=== PATIENT | female | born 1970 | race Asian ===

== ENCOUNTER 2024-03-31 15:10 | Emergency (ER) | payer OTHER ==
[~2024-03-31] VITALS: Ht 152.4 cm; Wt 53.5 kg
[2024-03-31 15:15] VITALS: BP_SYST 190; PULSE 91; RESP 18; TEMP 98.3; O2SAT 97
[2024-03-31] MEDS: cloNIDine HCL 0.1 MG TABLET PO ONE (15:42)
[2024-03-31 16:03] LABS: BASOPHILS # (AUTO) 0.2 K/uL (0.0-0.2); BASOPHILS % (AUTO) 2.5 % (0.0-2.0); EOSINOPHILS # (AUTO) 0.3 K/uL (0.0-0.4); EOSINOPHILS % (AUTO) 4.1 % (0.0-4.0); HEMATOCRIT 41.4 % (36-48); HEMOGLOBIN 13.8 g/dL (12.0-16.0); LYMPHOCYTES # (AUTO) 3.1 K/uL (1.0-5.5); LYMPHOCYTES % (AUTO) 39.3 % (20.5-51.5); MEAN CORPUSCULAR HEMOGLOBIN 31 pg (27-31); MEAN CORPUSCULAR HGB CONC 33 % (32-36); MEAN CORPUSCULAR VOLUME 93 fL (79.0-98.0); MONOCYTES # (AUTO) 0.7 K/uL (0.0-1.0); MONOCYTES % (AUTO) 8.6 % (1.7-9.3); NEUTROPHILS # (AUTO) 3.6 K/uL (1.8-7.7); NEUTROPHILS % (AUTO) 45.5 % (40.0-70.0); PLATELET COUNT (AUTO) 268 K/uL (130-430); RED BLOOD CELL COUNT(AUTO) 4.47 MIL/uL (4.2-6.2); RED CELL DISTRIBUTION WIDTH 13.2 % (9.0-15.0); WHITE BLOOD COUNT (AUTO) 7.9 K/uL (4.8-10.8)
[2024-03-31 16:15] LABS: ANION GAP 7 (5-15); CALCIUM 9.6 mg/dL (8.4-11.0); CARBON DIOXIDE 27 mmol/L (23-29); CHLORIDE 102 mmol/L (98-107); CREATININE 0.63 mg/dL (0.55-1.30); GFR AFRICAN AMERICAN 127 mL/min (>90); GFR NON AFRICAN-AMERICAN 105 mL/min (>90); GLUCOSE 90 mg/dL (74-106); POTASSIUM 3.6 mmol/L (3.5-5.1); SODIUM SERUM 136 mmol/L (136-145); UREA NITROGEN, BLOOD 15 mg/dL (8-21)
[2024-03-31] MEDS ORDERED: IBUP-1969 PO (16:29)
[2024-03-31] MEDS ORDERED: CLON0.2T PO (16:29)
[2024-03-31] MEDS: MORPHINE 4 MG INJ. 4 MG/ML VIAL IM ONE (16:31)
[2024-03-31 17:10] VITALS: BP_SYST 107; PULSE 72; RESP 16; TEMP 97.5; O2SAT 98
== END 2024-03-31 17:10 | disposition home or self-care (01) ==
LOC: SED 15:10
DX: S00.03XA Contusion of scalp, initial encounter (principal); S09.8XXA Other specified injuries of head, initial encounter; I10 Essential (primary) hypertension; W18.2XXA Fall in (into) shower or empty bathtub, initial encounter; Y93.89 Activity, other specified; Y92.89 Other specified places as the place of occurrence of the external cause; Y99.8 Other external cause status
CPT/HCPCS: 99285; 70450; 71045; 80048; 83880; 85025; 84484; 36415; 96372; J2270